=== PATIENT | male | born 1995 | race Caucasian/White ===

== ENCOUNTER 2019-10-12 00:01 | Emergency (ER) | payer MEDICAID ==
[~2019-10-12] VITALS: Ht 172.7 cm; Wt 64.4 kg
[2019-10-12 00:35] VITALS: BP_SYST 124
--- NOTE | 2019-10-12 01:00 | NUR ---
Patient to [facility] for evaluation. Side rails up.
--- NOTE | 2019-10-12 02:30 | NUR ---
Dr. Christianson bedside for pt eval
--- NOTE | 2019-10-12 02:45 | NUR ---
Pt BIB family to ED C/O having been "poked left hand with dirty nail" asking for Tetanus shot. No other complaints and or injuries noted VSS no s/s of acute distress Resting on gurney rails up
--- NOTE | 2019-10-12 03:38 | NUR ---
VSS no s/s of acute distress Resting on gurney rails up
[2019-10-12] MEDS ORDERED: BACITRACIN 1 GM OINT TP ONE (04:30)
[2019-10-12] MEDS ORDERED: DIPH-TET-PERTUS Vaccine 0.5 ML VIAL (ADACEL) I.M. ONE (04:30)
[2019-10-12 04:35] VITALS: BP_SYST 124
--- NOTE | 2019-10-12 04:35 | NUR ---
Patient given written and verbal discharge instructions and verbalizes understanding. ER MD discussed with patient the results and treatment provided. Patient in stable condition. ID arm band removed. Rx of Bactroban given. Patient educated on pain management and to follow up with PMD. Pain Scale 0/10 Opportunity for questions provided and answered. Medication side effect fact sheet provided.
== END 2019-10-12 04:35 | disposition home or self-care (01) ==
LOC: SED 00:01
DX: S60.512A Abrasion of left hand, initial encounter (principal); W22.8XXA Striking against or struck by other objects, initial encounter; Y93.89 Activity, other specified; Y92.89 Other specified places as the place of occurrence of the external cause; Y99.0 Civilian activity done for income or pay
CPT/HCPCS: 99283